=== PATIENT | female | born 1975 | race Caucasian/White ===

== ENCOUNTER 2017-05-30 08:35 | Outpatient (CLI) | payer OTHER | END 2017-05-30 08:36 | disposition home or self-care (01) | LOC: DTY/OP 08:35 | PROVIDERS: ATTEND Surgery | DX: Z48.815 Encounter for surgical aftercare following surgery on the digestive system (principal); E66.01 Morbid (severe) obesity due to excess calories; Z98.84 Bariatric surgery status | CPT/HCPCS: 97802 ==

== ENCOUNTER 2017-06-29 08:30 | Inpatient (IN) | payer OTHER ==
[2017-07-04] MEDS ORDERED: CEFAZOLIN/Water 2 GM/20 ML SYRINGE ONE (06:16)
[2017-07-04] MEDS ORDERED: Heparin 5,000 UNITS/ML VIAL ONE (06:16)
[2017-07-04] MEDS ORDERED: Bupivacaine/Epinephrine 0.25% 30 ML VIAL ONE (06:34)
[2017-07-04] MEDS ORDERED: Scopolamine 1.5 mg/72 hour Patch ONE (08:01)
--- NOTE | 2017-07-04 08:04 | HP ---
CHIEF COMPLAINT: Morbid obesity. HISTORY: The patient is a 42-year-old female, who has been overweight for many years and attempted [facility] weight loss programs without success. She is here for sleeve gastrectomy. PAST MEDICAL HISTORY: Significant for back pain and anxiety. PAST SURGICAL HISTORY: None. MEDICATIONS: Oral contraceptives and Prozac. ALLERGIES: No known drug allergies. FAMILY HISTORY: Diabetes in both mother and father. SOCIAL HISTORY: She is a nonsmoker, occasional alcohol. PHYSICAL EXAMINATION: GENERAL: Height 5 feet 4, weight 210 pounds, body mass index 36.04. VITAL SIGNS: Blood pressure 143/89 and pulse 92. GENERAL: She is a well-developed, well-nourished female, in no apparent distress. HEENT: Good hair growth. No alopecia. Pupils equal, round, and reactive. Extraocular motor intact . Pharynx clear. Good dentition. NECK: Supple, no thyroid masses, no carotid bruits. LUNGS: Clear. HEART: Regular rate and rhythm. BREASTS: There are no palpable breast masses. No lymphadenopathy. ABDOMEN: Soft, nondistended, nontender, good bowel sounds, no masses or hernias. BACK: No spinal tenderness or deformity. EXTREMITIES: Good pulses. No pedal edema. ASSESSMENT: Morbid obesity. PLAN: Laparoscopic sleeve gastrectomy. CONSENT: I have discussed planned procedure as well as risk of bleeding, infection, injury to esopha javier, spleen, loops of bowel, need to open. She understands and gives informed consent.
[2017-07-04] MEDS ORDERED: diphenhydrAMINE 50 MG/ML VIAL IM PRN (08:08)
[2017-07-04] MEDS ORDERED: Promethazine HCl 25 MG/ML VIAL SLOW IVP PRN (08:08)
[2017-07-04] MEDS ORDERED: Naloxone HCl 0.4 mg/ml Vial IV PRN (08:08)
[2017-07-04] MEDS ORDERED: Promethazine HCl 25 MG/ML VIAL IM PRN ×2 (08:08→08:51)
[2017-07-04] MEDS ORDERED: diphenhydrAMINE 50 MG/ML VIAL IVP PRN ×2 (08:08→08:51)
[2017-07-04] MEDS ORDERED: HYDROmorphone 2 MG/ML VIAL SLOW IVP PRN (08:08)
[2017-07-04] MEDS ORDERED: diphenhydrAMINE 25 MG CAP PO PRN (08:08)
[2017-07-04] MEDS ORDERED: Zolpidem Tartrate 5 MG TAB PO PRN (08:08)
[2017-07-04] MEDS ORDERED: Meperidine HCl/PF 25 MG/ML VIAL SLOW IVP PRN (08:08)
[2017-07-04] MEDS ORDERED: Morphine Sulfate 2 MG/ML SYRINGE SLOW IVP PRN (08:08)
[2017-07-04] MEDS ORDERED: Morphine CADD 1 MG/ML CADD IVPB PRN (08:08)
[2017-07-04] MEDS ORDERED: Ondansetron HCl/PF 4 MG/2 ML Vial IVP PRN ×2 (08:08→08:51)
[2017-07-04] MEDS ORDERED: Communication Order-Pharmacy FS SCH (08:15)
[2017-07-04] MEDS ORDERED: hydrALAZINE 20 MG/ML VIAL SLOW IVP PRN (08:51)
[2017-07-04] MEDS ORDERED: Dextrose 50% Abboject 50 ML SYRINGE SLOW IVP PRN (08:51)
[2017-07-04] MEDS ORDERED: Hydrocodone-Acetamin 15 ML UDCUP PO PRN (08:51)
[2017-07-04] MEDS ORDERED: Dextrose 5% in Water 1,000 ML IV PRN (08:51)
[2017-07-04] MEDS: Pantoprazole 40 MG VIAL IVP SCH (09:00)
[2017-07-04] MEDS ORDERED: Fentanyl 250 MCG/5 ML VIAL ONE ×2 (09:05→09:14)
[2017-07-04] MEDS ORDERED: Midazolam HCl 2 mg/2 ml Vial ONE (09:05)
[2017-07-04] MEDS ORDERED: Promethazine HCl 25 MG/ML VIAL ONE (09:15)
--- NOTE | 2017-07-04 09:34 | OP ---
DATE OF PROCEDURE: 07/04/2017 PREOPERATIVE DIAGNOSIS: Morbid obesity. SURGEON: Mason Robins M.D. PROCEDURE: Laparoscopic sleeve gastrectomy, intraoperative esophagogastroscopy, INDICATIONS: The patient is a 42-year-old female who has been overweight for many years, has attempt ed multiple weight loss programs without success. FINDINGS: A 38 Maori bougie used. PROCEDURE IN DETAIL: After informed consent was obtained, the patient was taken to the operating luis [facility]ern[facility] m and given general endotracheal anesthesia. She was placed in the supine position. Her abdomen was prepped and draped in usual fashion. Local anesthesia infiltrated subcutaneously and deep and a 12 mm incision was performed approximately 8 inches below the xiphoid slightly to the left. Veress need le inserted. Drop test performed. Pneumoperitoneum was created to a volume of 2 liters of carbon di oxide. Utilizing a bladeless 12 mm trocar and 0 degree laparoscope direct visual entry in the abdomi nal cavity was performed. Pneumoperitoneum was then created to a pressure of 15 mmHg. The patient p laced in steep reverse Trendelenburg position. Nathansen liver retractor inserted. Left lobe of prasanth er retracted superiorly. Pylorus identified, a 12 mm port placed on the right beneath it and two 12s placed left subcostal. The omentum was taken off the greater curvature 5 cm from the pylorus utiliz ing the LigaSure. Short gastrics divided with LigaSure, left crura defined with LigaSure. A 38-Fren ch bougie inserted and directed into the antrum. The linear 60 mm green load stapler used to divide the antrum to the bougie, gold load along the bougie, and a series of blues through the angle of His. Intraoperative endoscopy was performed. The video endoscope inserted under direct vision and advan radha into the sleeve. Staple line inspected. There was no bleeding. Staple line then tested by infl ating the new stomach with pressurized air under water. There is no air leak. Stomach decompressed. Scope removed. The remnant stomach removed from the abdomen through the left lateral port site. T he fascia closed with interrupted 0 Vicryl suture. The skin closed with interrupted 4-0 Rapide. Joe mabond applied. The patient tolerated the procedure well and was transferred to recovery in good con dition. Sponge and needle count verified correct x2.
[2017-07-04] MEDS: D5 1/2 NS w/20 mEq KCL 1,000 ML IV SCH ×3 (13:32→20:56)
[2017-07-04] MEDS ORDERED: CEFAZOLIN/Water 2 GM/20 ML SYRINGE SLOW IVP SCH ×2 (14:00→23:59)
[2017-07-04] MEDS ORDERED: Ketorolac Tromethamine 30 MG/ML VIAL ONE (15:16)
[2017-07-04] MEDS ORDERED: Lidocaine 1% PF 5 ML VIAL ONE (15:16)
[2017-07-04] MEDS ORDERED: Propofol 200 MG/20 ML VIAL ONE (15:16)
[2017-07-04] MEDS ORDERED: ePHEDrine/0.9% NaCl/PF SYRINGE 50 mg/10 ml ONE (15:16)
[2017-07-04] MEDS ORDERED: Dexamethasone 20 MG/5 ML VIAL ONE (15:16)
[2017-07-04] MEDS ORDERED: Ondansetron HCl/PF 4 MG/2 ML Vial ONE (15:16)
[2017-07-04] MEDS ORDERED: Glycopyrrolate 0.2 MG/ML 5 ML SYRINGE ONE (15:16)
[2017-07-05 05:05] LABS: #Lymphocytes 1.3 thou/uL (1.20-3.40); #Neutrophils 9.3 thou/uL (1.40-6.50); %Basophils 0.1 % (0.0-1.0); %Eosinophils 0.1 % (0.0-10.0); %Lymphocytes 11.2 % (21.0-51.0); %Monocytes 8.9 % (0.0-10.0); %Neutrophils 79.6 % (42.0-75.0); Mean Corpuscular HGB CONC 33.5 g/dL (32.0-36.0); Mean Corpuscular Hemoglobin 31.7 pg (27.0-31.0); Mean Corpuscular Volume 94.7 fl (81.0-99.0); Mean Platelet Volume 7.2 fL (7.4-10.4); Platelet Count 197 thou/uL (130-400); RBC Distribution Width 11.6 % (11.5-14.5); Red Blood Cell (RBC) Count 3.79 mill/uL (4.20-5.40); White Blood Cell (WBC) Count 11.7 thou/uL (4.8-10.8)
[2017-07-05 05:18] LABS: Anion Gap 9 mmol/L (10-20); BUN (Urea Nitrogen) 5 mg/dL (7.0-18.7); Calc. Creatinine Clearance 0 mL/min (70-130); Calcium 8.8 mg/dL (7.8-10.44); Carbon Dioxide 25 mmol/L (22-29); Chloride 107 mmol/L (98-107); Estimated GFR-MDRD 87; Glucose 135 mg/dL (70-105); Potassium 4.1 mmol/L (3.5-5.1); Sodium 137 mmol/L (136-145)
[2017-07-05] MEDS: D5 1/2 NS w/20 mEq KCL 1,000 ML IV SCH (05:52)
[2017-07-05] MEDS ORDERED: Enoxaparin Sodium 40 MG/0.4 ML SYRINGE SC SCH (06:00)
[2017-07-05] MEDS: Pantoprazole 40 MG VIAL IVP SCH (09:19)
--- NOTE | 2017-07-05 10:08 | RAD ---
GASTROGRAFIN SWALLOW: Date: 07/05/17 HISTORY: Patient is postop gastric sleeve procedure by history. TECHNIQUE/FINDINGS: 15 mL of Gastrografin was given to the patient. The Gastrografin passed through the stomach without d ifficulty. No extravasation. IMPRESSION: Unremarkable study. POS: [facility]
[2017-07-05 11:35] VITALS: BP 142/87; TEMP 98.6
--- NOTE | 2017-07-05 12:39 | DIS ---
DISCHARGE DIAGNOSIS: Morbid obesity. PROCEDURES DURING ADMISSION: Laparoscopic sleeve gastrectomy, intraoperative esophagogastroscopy, po stoperative Gastrografin swallow. HOSPITAL COURSE: The patient was admitted, taken to the operating room where she underwent a sleeve gastrectomy. Postoperatively, she has done well. X-ray was fine. She was started on liquids. She is tolerating them well. She is discharged home in good condition on hydrocodone and Zofran. She wi ll follow up with me in 2 weeks.
[2017-07-06] MEDS ORDERED: Enoxaparin Sodium 40 MG/0.4 ML SYRINGE SC SCH (09:00)
== END 2017-07-05 12:35 | disposition home or self-care (01) | DRG 621 ==
LOC: SURG A 07-04 06:02 → EDSTATUS 07-04 08:30 → SURG A 07-04 12:39
PROVIDERS: ADMIT Surgery; ATTEND Surgery
PROC: 0DB64Z3 Excision of Stomach, Percutaneous Endoscopic Approach, Vertical (ICD-10-PCS; principal; 2017-07-04)
DX: E66.01 Morbid (severe) obesity due to excess calories (principal); F41.9 Anxiety disorder, unspecified; Z68.36 Body mass index [BMI] 36.0-36.9, adult
CPT/HCPCS: 36415; 74241; 80048; 85025; 88307; 88312; 94760; C9113; J1100; J1644; J1650; J1885; J2001; J2250; J2274; J2405; J2550; J2704; J3010

== ENCOUNTER 2017-06-29 13:48 | Outpatient (CLI) | payer OTHER ==
[2017-06-29 14:03] VITALS: BMI 35.9
== END 2017-06-29 13:49 | disposition home or self-care (01) ==
LOC: LABBT 13:48
PROVIDERS: ATTEND Surgery
DX: Z01.818 Encounter for other preprocedural examination (principal); Z01.812 Encounter for preprocedural laboratory examination; E66.01 Morbid (severe) obesity due to excess calories

== ENCOUNTER 2017-08-10 13:46 | Outpatient (CLI) | payer OTHER | END 2017-08-10 13:47 | disposition home or self-care (01) | LOC: BICMAMMO 13:46 | PROVIDERS: ATTEND Obstetrics & Gynecology | DX: Z12.31 Encounter for screening mammogram for malignant neoplasm of breast (principal) | CPT/HCPCS: 77063; 77067 ==